=== PATIENT | female | born 1985 | race Caucasian/White ===

== ENCOUNTER 2018-03-24 21:35 | Inpatient (IN) | payer OTHER, MEDICAID ==
[~2018-03-24] VITALS: Ht 170.2 cm; Wt 79.8 kg
[~2018-03-24 21:35] MED LIST: ACET-2178 PO; ALBU05 NEB; BACL-141 PO; BO1 TP; CALC-1059 PO; CAPS1ADH9 TP; CLON-457 PO; CLON2TAB11 PO; D-ME473S8 PO; DIVA500T51 PO; DOCU-150 PO; FAMO20TA8 PO; FERR325T6 PO; FLOV44 INH; HYDR-4086 PO; LAMO50TA3 PO; LISI10TA5 PO; LORA10TA7 PO; MONT10TA21 PO; MUPI1OIN4 TP; PARO37.510 PO; QUET200T29 PO; QUET300T19 PO; SERT-112 PO; SULF1TAB47 PO; TEMA30CA PO; [UNRECOGNIZED DRUG - CODE] IM; [UNRECOGNIZED DRUG - CODE] TOP
[2018-03-24] MEDS ORDERED: SODIUM CHLORIDE 0.9% 1,000 ML IV ONE (23:14)
[2018-03-24] MEDS ORDERED: ONDANSETRON HCL 4MG/2ML INJ IV STA (23:14)
[2018-03-25 00:16] LABS: BASOPHILS % 0.8 % (0.0-2.0); EOSINOPHILS % 1.3 % (0.0-5.0); HEMOGLOBIN. 15.6 g/dL (12.0-16.0); LYMPHOCYTES % 24.5 % (20.0-50.0); MEAN CORPUSCULAR HEMOGLOBIN 30.8 pg (28.0-32.0); MEAN CORPUSCULAR VOLUME 88.6 fL (81.0-99.0); MEAN PLATELET VOLUME 8.6 fl (7.4-10.4); MONOCYTES % 6.9 % (2.0-8.0); NEUTROPHILS % 66.5 % (40.0-76.0); PLATELET 356 x1000/uL (130-400); RED BLOOD CELL COUNT 5.08 mill/uL (4.2-5.4); RED CELL DISTRIBUTION WIDTH 13.8 % (11.6-14.6)
[2018-03-25 00:30] LABS: CHLORIDE 106 mEq/L (98-107)
[2018-03-25] MEDS ORDERED: MORPHINE SULFATE 4 MG/ML CPJ (NOT FOR IM USE) IV NR (00:45)
[2018-03-25 01:02] LABS: CLARITY URINE CLEAR (CLEAR); COLOR URINE YELLOW (YELLOW); KETONES URINE NEGATIVE (NEGATIVE); LEUKOCYTE ESTERASE URINE NEGATIVE (NEGATIVE); NITRITE URINE NEGATIVE (NEGATIVE); OCCULT BLOOD URINE NEGATIVE (NEGATIVE); PH URINE 5.5 (4.5-8.0); PROTEIN URINE NEGATIVE (NEGATIVE); SPECIFIC GRAVITY URINE 1.015 (1.005-1.030); UROBILINOGEN URINE 0.2 E.U./dL (0.2-1.0)
[2018-03-25] MEDS ORDERED: PIPERACILLIN/TAZOBACTAM 3.375GM/50ML PREMIX IV ONE (01:45)
[2018-03-25] MEDS ORDERED: SODIUM CHLORIDE 0.9% 1,000 ML IV ONE (01:45)
[2018-03-25] MEDS ORDERED: PIPERACILLIN/TAZ 3.375G PREMIX 50 ML IV NR (01:45)
[2018-03-25] MEDS ORDERED: MORPHINE SULFATE 4 MG/ML CPJ (NOT FOR IM USE) IV ONE (02:15)
[2018-03-25] MEDS ORDERED: ONDANSETRON HCL 4MG/2ML INJ IV ONE (03:45)
[2018-03-25 08:00] VITALS: BP 106/70
[2018-03-25] MEDS ORDERED: CLONIDINE 0.1MG TABLET PO PRN (11:45)
[2018-03-25] MEDS ORDERED: MAGNESIUM/ALUMINUM HYDROXIDE/SIMETHICONE 30ML UDC PO PRN (11:45)
[2018-03-25] MEDS ORDERED: TEMAZEPAM 15MG CAPSULE PO PRN (11:45)
[2018-03-25] MEDS ORDERED: ACETAMINOPHEN 325MG TABLET PO PRN (11:45)
[2018-03-25 12:00] VITALS: BP 91/42
[2018-03-25] MEDS: BACLOFEN 10MG TABLET PO SCH (12:37)
[2018-03-25] MEDS: PAROXETINE HCL 10MG TABLET PO SCH (12:37)
[2018-03-25] MEDS: SERTRALINE HCL 100MG TABLET PO SCH (12:37)
[2018-03-25] MEDS ORDERED: ENOXAPARIN 40MG/0.4ML SYR SUBCUT SCH (14:00)
[2018-03-25] MEDS ORDERED: ONDANSETRON HCL 4MG/2ML INJ IV PRN (15:00)
[2018-03-25] MEDS: ONDANSETRON HCL 4MG/2ML INJ IV PRN ×2 (15:12→20:19)
[2018-03-25 16:00] VITALS: BP 126/89
[2018-03-25] MEDS: LAMOTRIGINE 25MG TABLET PO SCH (16:42)
[2018-03-25 20:00] VITALS: BP 109/66
[2018-03-25] MEDS: CLONAZEPAM 1MG TABLET PO SCH (20:19)
[2018-03-26] VITALS: BP 108/77
[2018-03-26 04:00] VITALS: BP 96/49
[2018-03-26 07:33] LABS: BASOPHILS % 0.6 % (0.0-2.0); HEMATOCRIT. 40.6 % (36.0-48.0); HEMOGLOBIN. 13.6 g/dL (12.0-16.0); MEAN CORPUSCULAR VOLUME 89.3 fL (81.0-99.0); MEAN PLATELET VOLUME 8.4 fl (7.4-10.4); MONOCYTES % 7.1 % (2.0-8.0); NEUTROPHILS % 67.3 % (40.0-76.0); PLATELET 272 x1000/uL (130-400); RED BLOOD CELL COUNT 4.54 mill/uL (4.2-5.4); RED CELL DISTRIBUTION WIDTH 13.3 % (11.6-14.6)
[2018-03-26 08:00] VITALS: BP 112/64
[2018-03-26 08:12] LABS: CHLORIDE 108 mEq/L (98-107)
[2018-03-26] MEDS: LAMOTRIGINE 25MG TABLET PO SCH (10:02)
[2018-03-26] MEDS: SERTRALINE HCL 100MG TABLET PO SCH (10:02)
[2018-03-26] MEDS: BACLOFEN 10MG TABLET PO SCH (10:02)
[2018-03-26] MEDS: CLONAZEPAM 1MG TABLET PO SCH (10:02)
[2018-03-26] MEDS: PAROXETINE HCL 10MG TABLET PO SCH (10:03)
[2018-03-26] MEDS: ONDANSETRON HCL 4MG/2ML INJ IV PRN (10:39)
[2018-03-26 12:00] VITALS: BP 107/67
[2018-03-26 13:24] VITALS: BP 107/67
== END 2018-03-26 15:00 | disposition home or self-care (01) | DRG 251 ==
LOC: ER 21:35 → 6EST 03-25 01:47 → ENRESERV 03-25 04:24 → CANRESERV 03-25 04:24 → ENRESERV 03-25 04:53 → CANRESERV 03-25 04:53 → ENRESERV 03-25 04:56 → 6EST 03-25 08:46
PROVIDERS: ADMIT Hospitalist; ATTEND Hospitalist
DX: R10.9 Unspecified abdominal pain (principal); E87.2 Acidosis; K42.0 Umbilical hernia with obstruction, without gangrene; G40.909 Epilepsy, unspecified, not intractable, without status epilepticus; G80.9 Cerebral palsy, unspecified; J45.909 Unspecified asthma, uncomplicated; I10 Essential (primary) hypertension; K44.9 Diaphragmatic hernia without obstruction or gangrene; Z74.01 Bed confinement status; Z98.2 Presence of cerebrospinal fluid drainage device; Z88.1 Allergy status to other antibiotic agents; Z79.899 Other long term (current) drug therapy
CPT/HCPCS: 36415; 71045; 74018; 74176; 81025; 83605; 84484; 96361; 96365; 96375; 96376; 99285; J1650; J2270; J2405; J2543; J7030; A4315